=== PATIENT | male | born 1995 | race American Indian/Alaskan Native ===

== ENCOUNTER 2024-08-25 17:14 | Emergency (ER) | payer OTHER ==
[~2024-08-25] VITALS: Ht 170.2 cm; Wt 83.8 kg
[~2024-08-25 17:14] MED LIST: BACTRIM DS TAB1 EACH PO; CEPHALEXIN500 MG PO; CLINDAMYCIN HC150 MG PO; IBUPROFEN800 MG PO; KEFLEX500 MG PO; NORCO 5-325 TA1 EACH PO
[2024-08-25 18:12] LABS: BASOPHILS 0.4 % (0-2); EOSINOPHILS 0.6 % (0-6); HEMATOCRIT 37.4 % (35.0-50.0); LYMPHOCYTES 11.8 % (24-44); MCH 30.7 (27-36); MCHC 34.6 g/dl (30-36); MCV 88.8 fl (81-99); MONOCYTES 8.2 % (0-12); PLATELET COUNT 302 K/uL (140-440); RBC 4.22 M/ul (4.3-5.7); RDW 13.4 (10.5-15.0)
[2024-08-25] MEDS ORDERED: OXYCODONE/APAP 5/325 TAB PO ONE (18:15)
[2024-08-25 18:20] VITALS: BP 135/87
[2024-08-25 18:23] LABS: ALBUMIN 3.2 g/dL (3.4-5.0); ALBUMIN/GLOBULIN RATIO 0.8 (1.1-2.4); ANION GAP 10.6 (7-21); BILIRUBIN, TOTAL 0.5 ng/dL (0.2-1.0); BUN/CREATININE RATIO 14.56 (6.0-28.6); CALCIUM 9.1 mg/dL (8.5-10.1); CREATININE, SERUM 1.03 mg/dL (0.70-1.30); POTASSIUM 3.6 mmol/L (3.5-5.1); PROTEIN, TOTAL 7.2 g/dL (6.4-8.2)
[2024-08-25 18:26] LABS: LACTIC ACID, BLOOD 0.7 mmol/L (0.4-2.0)
== END 2024-08-25 18:20 | disposition left against medical advice (07) ==
LOC: ED 17:14
PROVIDERS: Emergency Medicine
DX: M79.671 Pain in right foot (principal); Z53.21 Procedure and treatment not carried out due to patient leaving prior to being seen by health care provider
CPT/HCPCS: 36415; 80053; 83605; 85025

== ENCOUNTER 2024-09-01 15:35 | Emergency (ER) | payer OTHER ==
[~2024-09-01] VITALS: Ht 170.2 cm; Wt 83.4 kg
--- OUTSIDE RECORDS SUMMARY | 2024-09-01 17:30 | XMS ---
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 Isabela has no Care Guidelines for this patient. [facility]12 MO.) [facility] NOTE: Visits indicate total known visits. ED[facility] [place] (12 MO.) 09/01/2024 15:[address] [facility] [place] TYPE: Emergency COMPLAINT: - FOOT INFECTION 08/25/2024 17:14 [facility] TYPE: Emergency COMPLAINT: - FOOT SWELLING DIAGNOSES: - Pain in right foot - Procedure and treatment not carried out due to patient leaving prior to being seen by health care provider INPATIENT VISIT TRACKING (12 MO.) No inpatient visits to display in this time frame [email or web address]
[2024-09-01 20:37] LABS: BASOPHILS 0.8 % (0-2); HEMATOCRIT 41.2 % (35.0-50.0); HEMOGLOBIN 14.1 g/dL (12.0-18.0); LYMPHOCYTES 18.8 % (24-44); MCH 30.3 (27-36); MCHC 34.2 g/dl (30-36); MCV 88.4 fl (81-99); MONOCYTES 6.5 % (0-12); NEUTROPHILS 72.9 % (39-80); PLATELET COUNT 465 K/uL (140-440); RBC 4.66 M/ul (4.3-5.7); RDW 13.5 (10.5-15.0)
[2024-09-01 20:53] LABS: ALBUMIN 3.2 g/dL (3.4-5.0); ALBUMIN/GLOBULIN RATIO 0.73 (1.1-2.4); ANION GAP 14.7 (7-21); BILIRUBIN, TOTAL 0.3 ng/dL (0.2-1.0); BUN/CREATININE RATIO 14.28 (6.0-28.6); CALCIUM 9.2 mg/dL (8.5-10.1); CREATININE, SERUM 0.91 mg/dL (0.70-1.30); POTASSIUM 3.7 mmol/L (3.5-5.1); PROTEIN, TOTAL 7.6 g/dL (6.4-8.2)
[2024-09-01] MEDS ORDERED: DOXYCYCLINE HYCLATE 100 MG HOME.PACK PO ONE (21:30)
[2024-09-01 21:48] VITALS: BP 121/76
== END 2024-09-01 21:49 | disposition home or self-care (01) ==
LOC: ED 15:35
PROVIDERS: Family Medicine
DX: L03.031 Cellulitis of right toe (principal); F17.200 Nicotine dependence, unspecified, uncomplicated; Z86.14 Personal history of Methicillin resistant Staphylococcus aureus infection
CPT/HCPCS: 36415; 73630; 73700; 80053; 83036; 83605; 85025; 87040; 99284-25; A9270